=== PATIENT | female | born 1975 | race Caucasian/White ===

== ENCOUNTER → 2017-04-13 | Outpatient (CLI) | payer OTHER | LOC: FIMAGING 10:04 | PROVIDERS: ATTEND Nurse Practitioner Women's Health | DX: Z12.31 Encounter for screening mammogram for malignant neoplasm of breast (principal) | CPT/HCPCS: G0202 ==

== ENCOUNTER 2018-04-25 09:26 | Emergency (ER) | payer OTHER ==
--- NOTE | 2018-04-25 10:22 | EDPHY ---
H & P Stated Complaint: R ankle injury Time Seen by Provider: 04/25/18 10:21 HPI/ROS: HPI: This is a 43-year-old female who presents with Chief Complaint: Right ankle injury Location: Right ankle Quality: Injury Duration: Prior to arrival Signs and Symptoms: No bleeding, no radiation, no numbness, no weakness, no tingling, no incontinence, + decreased range of motion, + swelling, + pain, no fever Timing: Acute Severity: Moderate Context: Patient reports that she accidentally everted her ankle while playing with her children. She reports that she felt immediate, constant, moderate pain that was nonradiating in nature and the lateral aspect as well as the front part of her foot. She reports that she has increased pain with weight- bearing. She has reported rapid onset of swelling and bruising. Denies paresthesias/weakness. She reports that she has mild decreased range of motion secondary to pain and swelling. She has no prior history of ankle sprains in the ankle. LMP 1-2 weeks ago. Denies LOC/head injury/neck pain/dizziness/nausea/ vomiting/amnesia. She is able to apply ice right away. Modifying Factors: Ice Comment: ROS: see HPI Constitutional: No fever, no chills, no weight loss Eyes: No blurred vision Respiratory: No shortness of breath, no cough Cardiovascular: No chest pain Gastrointestinal: No nausea, no vomiting no diarrhea Genitourinary: No dysuria Extremities: No myalgias Neurologic: No weakness, no numbness Skin: No rashes Hematologic: No bruising, no bleeding MEDICAL/SURGICAL/SOCIAL HISTORY: MEDICAL- VERTIGO, HEART MURMUR SURGICAL- , [facility]INO Social history: Never smoked. CONSTITUTIONAL: Polite and cooperative middle-aged white female, at bedside, awake and alert, no obvious distress HEENT: Atraumatic and normocephalic. EXTREMITIES: 2/2 pulses, strength 5/5, right Ankle: Plantar flexion to 50, dorsiflexion to 20. Foot inversion to 35 degree. Moderate tenderness/ swelling Anterior talofibular ligament. Moderate tenderness/swelling Calcaneofibular ligament, no tenderness/swelling posterior talofibular ligament , no tenderness/swelling posterior inferior tibiofibular ligament. Achilles tendon intact. DIP/PIP/MCP flexion/extension intact with good light touch sensation. no deformities, no clubbing, no cyanosis or edema. NEUROLOGICAL: no focal neuro deficits. GCS 15. Light touch sensation intact. SKIN: Warm and dry, no erythema. no rash. Good capillary refill. Source: Patient Exam Limitations: No limitations - Personal History LMP (Females 10-55): 8-14 Days Ago Current Tetanus/Diphtheria Vaccine: Yes Current Tetanus Diphtheria and Acellular Pertussis (TDAP): Yes - Medical/Surgical History Hx Asthma: No Hx Chronic Respiratory Disease: No Hx Diabetes: No Hx Cardiac Disease: No Hx Renal Disease: No Hx Cirrhosis: No Hx Alcoholism: No Hx HIV/AIDS: No Hx Splenectomy or Spleen Trauma: No Other PMH: MEDICAL- VERTIGO, HEART MURMOR. SURGICAL- , RHINO - Social History Smoking Status: Never smoked Constitutional: Initial Vital Signs Temperature (C) 36.7 C 04/25/18 09:30 Heart Rate 114 H 04/25/18 09:30 Respiratory Rate 16 04/25/18 09:30 Blood Pressure 187/113 H 04/25/18 09:30 O2 Sat (%) 99 04/25/18 09:30 O2 Delivery Mode Room Air Allergies/Adverse Reactions: No Known Allergies Allergy (Unverified 04/25/18 09:29) Home Medications: Medication Instructions Recorded Calcium Carb/Magnesium Hydrox 04/25/18 [place]-3 04/25/18 Medical Decision Making - Diagnostics Imaging Results: Imaging Impressions Ankle X-Ray 04/25/18 09:33 Impression: Ankle sprain. Procedures: Procedure: Splint placement. A walking boot was applied the Emergency Room air sealing technician. After application of the splint I returned and re-examined the patient. The splint was adequately immobilizing the joint and distal to the splint the patient's circulation and sensation was intact. ED Course/Re-evaluation: Given Vicodin per request No signs of neurovascular compromise/tenting of skin/compartment syndrome/ extremities and joints examined above and below area of concern and are neurovascularly intact. X-ray my read shows lateral and anterior soft tissue swelling; no fracture. Ankle mortise is normal. Walking boot, crutches, rice therapy, Ortho follow-up This patient was seen under the supervision of my secondary supervising physician. I evaluated care for this patient independently. Discussed this patient with Dr. Cih who did not see the patient. Differential Diagnosis: Differential diagnosis includes but is not limited to tibia fracture, fibula fracture, midfoot fracture, Lis Franc fracture, sprain. Departure - Departure Disposition: Home, Routine, Self-Care Clinical Impression: Grade 2 ankle sprain Qualifiers: Encounter type: initial encounter Laterality: right Qualified Code(s): S93.401A - Sprain of unspecified ligament of right ankle, initial encounter Condition: Good Instructions: Ankle Sprain (DC) Additional Instructions: Wear the walking boot while out of bed until pain free. Use crutches to aid ambulation and start with toe-touch weight-bearing status. Slowly advance weight-bearing as tolerated. Take Tylenol 650 mg every 4 hours and/or Ibuprofen 600 mg every 8 hours with food as needed for pain. Apply ice for 30 minutes at a time; 2-3 times per day for the next 1-2 days. Follow up with Orthopedics in 10-14 days if symptoms persist at which time they will evaluate and recommend with you if conservative management versus surgery is indicated. The x-rays obtained in the emergency department today demonstrate no evidence of an obvious fracture. Sometimes fractures are not obvious on the initial set of x-rays performed in the ED. For this reason, you should have repeat x-rays performed in 7-10 days if you are having any pain exclude the possibility of an occult fracture. Return to the ER immediately if you experience new or worsening pain, discoloration, numbness, tingling, or any other symptoms that concern you. Referrals: Spring Skinner MD [Primary Care Provider] - As per Instructions Anna Barajas MD [Medical Doctor] - Follow Up Only If Needed
[2018-04-25] MEDS ORDERED: OXYCODONE/APAP 5/325 TAB PO ONE (10:24)
[2018-04-25] MEDS ORDERED: HYDROCODONE/APAP 5/325 TAB PO ONE (10:35)
[2018-04-25 11:04] VITALS: BP 160/90
== END 2018-04-25 11:01 | disposition home or self-care (01) ==
DX: S93.401A Sprain of unspecified ligament of right ankle, initial encounter (principal); X50.9XXA Other and unspecified overexertion or strenuous movements or postures, initial encounter; Y99.8 Other external cause status; Y93.89 Activity, other specified
CPT/HCPCS: L4386

== ENCOUNTER → 2018-06-01 | Outpatient (CLI) | payer OTHER | LOC: FIMAGING 11:02 | PROVIDERS: ATTEND Nurse Practitioner Women's Health | DX: Z12.31 Encounter for screening mammogram for malignant neoplasm of breast (principal) ==